=== PATIENT | female | born 1985 | race African-American/Black ===

== ENCOUNTER 2019-02-26 09:09 | Emergency (ER) | payer SELFPAY ==
[~2019-02-26] VITALS: Ht 167.6 cm; Wt 61.2 kg
[2019-02-26 10:24] VITALS: BP 175/131
[2019-02-26] MEDS ORDERED: CYCLOBENZAPRINE 10 MG TABLET. PO ONE (10:45)
[2019-02-26] MEDS ORDERED: traMADol 50 MG TABLET PO ONE (10:45)
--- NOTE | 2019-02-26 11:02 | RAD ---
SHOULDER 2+V RIGHT DATE: 02/26/2019 10:40 AM INDICATION: Right shoulder pain for 2 weeks COMPARISON: None. FINDINGS: Bones: There is no evidence of acute fracture or dislocation. Joints: The joint spaces are normal. The acromiohumeral distance is not narrowed. Miscellaneous: No abnormal soft tissue calcifications in the shoulder. IMPRESSION: No evidence of acute fracture. Electronically signed by: Mynor Peña MD (02/26/2019 10:59 AM) [facility]
[2019-02-26] MEDS ORDERED: TRAM-48 PO (11:24)
[2019-02-26] MEDS ORDERED: CYCL10TA2 PO (11:24)
--- NOTE | 2019-02-26 11:24 | PHYS DOC ---
Past Medical History Past Medical History: Hypertension Past Surgical History: Cholecystectomy, Alcohol Use: None Drug Use: None Adult General Chief Complaint Chief Complaint: SHOULDER INJURY HPI HPI Patient is a 33 year old non-Uzbek speaking right-handed female who presents with complaining of right shoulder pain for 15 days. Patient states the pain is a constant pain with radiation from her shoulder to fingers and right side of her body and tingling to her toes and getting worse with movements of her arm. Patient complaining of numbness of her hand when she keep her hand extended. Patient denies injuries, fever and chills, nausea and vomiting, , history of the same problem. Patient denies taking pain medication at home. Review of Systems Review of Systems Constitutional: Denies fever or chills [] Eyes: Denies change in visual acuity, redness, or eye pain [] HENT: Denies nasal congestion or sore throat [] Respiratory: Denies cough or shortness of breath [] Cardiovascular: No additional information not addressed in HPI [] GI: Denies abdominal pain, nausea, vomiting, bloody stools or diarrhea [] : Denies dysuria or hematuria [] Musculoskeletal: Denies back pain, reports joint pain [] Integument: Denies rash or skin lesions [] Neurologic: Denies headache, focal weakness or sensory changes [] Endocrine: Denies polyuria or polydipsia [] All other systems were reviewed and found to be within normal limits, except as documented in this note. Current Medications Current Medications Current Medications Medications (Trade) Dose Ordered Sig/Ani Start Time Stop Time Status Last Admin Dose Admin Cyclobenzaprine HCl (Flexeril) 10 mg 1X ONCE 02/26/19 10:45 02/26/19 11:08 DC 02/26/19 11:04 10 MG Tramadol HCl (Ultram) 50 mg 1X ONCE 02/26/19 10:45 02/26/19 11:08 DC 02/26/19 11:04 50 MG Allergies Allergies Allergies Coded Allergies Type Severity Reaction Last Updated Verified No Known Drug Allergies 07/27/13 No Physical Exam Physical Exam Constitutional: Well developed, well nourished, mild distress, non-toxic appearance. [] HENT: Normocephalic, atraumatic. Eyes: PERRLA, EOMI, conjunctiva normal, no discharge. [] Neck: Normal range of motion, no tenderness, supple, no stridor. [] Cardiovascular:Heart rate regular rhythm, no murmur [] Lungs & Thorax: Bilateral breath sounds clear to auscultation [] Back: No tenderness, no CVA tenderness. [] Extremities: Right shoulder without deformity, painful range of motion, no neurovascular deficit. Neurologic: Alert and oriented X 3, no focal deficits noted. [] Psychologic: Affect anxious, judgement normal, mood normal. [] Current Patient Data Vital Signs Vital Signs Date Time Temp Pulse Resp B/P (MAP) Pulse Ox O2 Delivery O2 Flow Rate FiO2 02/26/19 11:04 16 99 Room Air 02/26/19 10:24 97.9 79 175/131 146) 97.9 EKG EKG [] Radiology/Procedures Radiology/Procedures [][facility] [address] [place] [address] IMAGING REPORT Signed PATIENT: TUYET BARON ACCOUNT: [id number] : 1985 LOCATION: ER AGE: 33 SEX: F EXAM STATUS: REG ER ORD. PHYSICIAN: SIOMARA GARCIA MD REASON: right shoulder pain x 2 wks, no known injury PROCEDURE: SHOULDER 2+V RIGHT SHOULDER 2+V RIGHT DATE: 02/26/2019 10:40 AM INDICATION: Right shoulder pain for 2 weeks COMPARISON: None. FINDINGS: Bones: There is no evidence of acute fracture or dislocation. Joints: The joint spaces are normal. The acromiohumeral distance is not narrowed. Miscellaneous: No abnormal soft tissue calcifications in the shoulder. IMPRESSION: No evidence of acute fracture. Electronically signed by: Elaine Peña MD (02/26/2019 10:59 AM) [facility] DICTATED and SIGNED BY: ELAINE PEÑA MD DATE: 02/26/19 1059 Course & Med Decision Making Course & Med Decision Making Pertinent Imaging studies reviewed. (See chart for details) discharge: I've spoken with the patient and/or caregivers. I've explained the patient's condition, diagnosis and treatment plan based on information available to me at this time. I've answered the patient's and/or caregivers questions and addressed any concerns. The patient and/or caregivers have a good understanding the patient's diagnosis, condition and treatment plan as can be expected at this point. Vital signs have been stabilized. The patient's condition is stable for discharge from the emergency department. The patient will pursue further outpatient evaluation with her primary care provider or other designated consulting physician as outlined in the discharge instructions. Patient and/or caregivers are agreeable to this plan of care and follow-up instructions have been explained in detail. The patient and/or caregivers have received these instructions in written format and expressed und erstanding of these discharge instructions. The patient and her caregivers are aware that if any significant change in condition or worsening of symptoms should prompt him to immediately return to this of the closest emergency department. If an emergent department is not readily available I would encourage him to call 911. [place] Disclaimer Dragon Disclaimer This electronic medical record was generated, in whole or in part, using a voice recognition dictation system. Departure Departure Impression: Primary Impression: Shoulder sprain Disposition: HOME, SELF-CARE (at 1121) Condition: STABLE Referrals: MALENA JIANG (PCP) Patient Instructions: Shoulder Sprain Additional Instructions: Drink plenty of liquids Follow-up with your primary care physician in 3-5 days Return to ER if not getting better Apply ice on the affected area Scripts Tramadol Hcl (ULTRAM) 50 Mg Tablet 50 MG PO Q6HRS PRN for PAIN, #14 TAB 0 Refills Prov: SIOMARA GARCIA MD 02/26/19 Cyclobenzaprine Hcl (CYCLOBENZAPRINE HCL) 10 Mg Tablet 1 TAB PO TID, #21 TAB Prov: SIOMARA GARCIA MD 02/26/19 Problem Qualifiers Primary Impression: Shoulder sprain Encounter type: initial encounter Shoulder sprain type: unspecified sprain Laterality: right Qualified Codes: S43.401A - Unspecified sprain of right shoulder joint, initial encounter SIOMARA GARCIA MD Feb 26, 2019 11:24
== END 2019-02-26 11:31 | disposition home or self-care (01) ==
LOC: ER 09:09
DX: S43.491A Other sprain of right shoulder joint, initial encounter (principal); I10 Essential (primary) hypertension; Z90.49 Acquired absence of other specified parts of digestive tract; Z98.890 Other specified postprocedural states; X58.XXXA Exposure to other specified factors, initial encounter; Y93.89 Activity, other specified; Y92.89 Other specified places as the place of occurrence of the external cause; Y99.8 Other external cause status
CPT/HCPCS: 73030; 99284